=== PATIENT | female | born 1990 | race Two or more races ===

== ENCOUNTER → 2018-01-02 | Outpatient (CLI) | payer OTHER ==
[~2018-01-02] MED LIST: MVI in SODIUM CHLORIDE 0.9% 1,000 ML IVB ONE; MVI in SODIUM CHLORIDE 0.9% 1,010 ML ONE; ONDANSETRON HCL 4 MG/2 ML VIAL IV ONE; ONDANSETRON HCL 4 MG/2 ML VIAL ONE
[2018-01-02 15:50] VITALS: BP 113/59
== END | disposition home or self-care (01) ==
LOC: CHF HDHVI 13:21
PROVIDERS: ATTEND Internal Medicine Cardiovascular Disease
DX: M25.60 Stiffness of unspecified joint, not elsewhere classified (principal); R25.2 Cramp and spasm; H53.149 Visual discomfort, unspecified; R51 Headache
CPT/HCPCS: 96365; 96366; 96375; G0463; J2405; J3411; J3475

== ENCOUNTER → 2018-01-04 | Outpatient (CLI) | payer OTHER | END | disposition home or self-care (01) | LOC: LAB 11:26 | PROVIDERS: ATTEND Internal Medicine Cardiovascular Disease | DX: M32.10 Systemic lupus erythematosus, organ or system involvement unspecified (principal) | CPT/HCPCS: 86225; 86235 ==

== ENCOUNTER → 2020-02-02 | Outpatient (CLI) | payer OTHER, MEDICAID ==
[~2020-02-02] MED LIST changes: +IOHEXOL 350 MG/ML 100ML IJ ONE; -MVI in SODIUM CHLORIDE 0.9% 1,000 ML IVB ONE; -MVI in SODIUM CHLORIDE 0.9% 1,010 ML ONE; -ONDANSETRON HCL 4 MG/2 ML VIAL IV ONE; -ONDANSETRON HCL 4 MG/2 ML VIAL ONE
[2020-02-02 09:39] VITALS: BP 124/83
--- NOTE | 2020-02-02 09:39 | NUR ---
PT. TO CLINIC FOR CTA OF LUNGS PER DR. CARRERO. PT. EDUCATED ON PROCEDURE, WITH ALL QUESTIONS ANSWERED. SEE NSG ASSESS.
--- NOTE | 2020-02-02 09:46 | NUR ---
IV insertion IV access obtained, via clean sterile technique by inserting 20 gauge catheter at after attempt(s). IV secured properly. No trauma to site. Patient tolerated procedure well. NO LABS NECESSARY PER PT. AGE.
--- NOTE | 2020-02-02 09:55 | NUR ---
PT. TO AND FROM CT. TOLERATED PROCEDURE WELL, WITH NO C/O.
[2020-02-02 10:10] VITALS: BP 111/78
--- NOTE | 2020-02-02 10:10 | NUR ---
IV removal IV DC'd with sterile technique, catheter fully intact. Pressure dressing applied to site. Patient tolerated procedure well. Discharged with aftercare instructions per MD. NOTE: PT. INSTRUCTED TO INCREASE WATER INTAKE FOR NEXT 24 HOURS.
== END | disposition home or self-care (01) ==
LOC: Rad HDHVI 09:23
PROVIDERS: ATTEND Internal Medicine Cardiovascular Disease
DX: R06.02 Shortness of breath (principal); R42 Dizziness and giddiness; R07.9 Chest pain, unspecified
CPT/HCPCS: 71275; G0463; Q9967

== ENCOUNTER → 2020-02-03 | Outpatient (CLI) | payer OTHER, MEDICAID ==
[~2020-02-03] VITALS: Ht 170.2 cm; Wt 85.3 kg
[~2020-02-03] MED LIST changes: +ADENOSINE 72 MG in GIVE UN-DILUTED 0 ML IV ONE; +ADENOSINE 90 MG/30 ML INJ IV ONE; -IOHEXOL 350 MG/ML 100ML IJ ONE
== END | disposition home or self-care (01) ==
LOC: Rad HDHVI 13:19
PROVIDERS: ATTEND Internal Medicine Cardiovascular Disease
DX: R07.9 Chest pain, unspecified (principal); R06.02 Shortness of breath; R42 Dizziness and giddiness; Z82.49 Family history of ischemic heart disease and other diseases of the circulatory system
CPT/HCPCS: 78452; 93005; 96374; 96375; A9500; J0153

== ENCOUNTER → 2020-02-04 | Outpatient (CLI) | payer OTHER, MEDICAID | END | disposition home or self-care (01) | LOC: Rad HDHVI 13:31 | PROVIDERS: ATTEND Internal Medicine Cardiovascular Disease | DX: I07.1 Rheumatic tricuspid insufficiency (principal); I73.9 Peripheral vascular disease, unspecified; E11.9 Type 2 diabetes mellitus without complications; R00.2 Palpitations | CPT/HCPCS: 93306 ==

== ENCOUNTER → 2020-04-28 | Outpatient (CLI) | payer OTHER, MEDICAID | END | disposition home or self-care (01) | LOC: Rad HDHVI 15:13 | PROVIDERS: ATTEND Internal Medicine Cardiovascular Disease | DX: M17.0 Bilateral primary osteoarthritis of knee (principal); M25.561 Pain in right knee; M25.562 Pain in left knee | CPT/HCPCS: 73562 ==